=== PATIENT | male | born 2000 | race Caucasian/White ===

== ENCOUNTER 2022-11-03 12:51 | Emergency (ER) | payer OTHER ==
[2022-11-03 12:59] VITALS: BP 134/75; PULSE 72; RESP 20; TEMP 97.8; BMI 35.5
== END 2022-11-03 13:55 | disposition home or self-care (01) ==
LOC: JER 12:51
DX: Z86.69 Personal history of other diseases of the nervous system and sense organs (principal)
CPT/HCPCS: 99282-25